=== PATIENT | female | born 2000 | race African-American/Black ===

== ENCOUNTER 2024-08-19 08:21 | Emergency (ER) | payer OTHER, SELFPAY ==
[2024-08-19 08:42] VITALS: BP 124/72; PULSE 86; RESP 15; TEMP 36.9; O2SAT 99; BMI 32.1
== END 2024-08-19 09:15 | disposition left against medical advice (07) ==
PROVIDERS: Emergency Provider Emergency Medicine
DX: Z53.21 Procedure and treatment not carried out due to patient leaving prior to being seen by health care provider (principal)
CPT/HCPCS: 99281